=== PATIENT | female | born 1990 | race Caucasian/White ===

== ENCOUNTER 2021-04-19 10:51 | Emergency (ER) | payer BC, OTHER ==
[2021-04-19 11:10] VITALS: TEMP 97.5
[2021-04-19] MEDS ORDERED: KETOROLAC 15 MG/ML 1 ML VIAL IVP STA (11:27)
[2021-04-19] MEDS ORDERED: SODIUM CHLORIDE 0.9% 1,000 ML IV STA (11:27)
[2021-04-19] MEDS ORDERED: PANTOPRAZOLE 40 MG/10 ML VIAL IVP STA (11:27)
[2021-04-19] MEDS ORDERED: ONDANSETRON 4 MG/2 ML VIAL IVP STA (11:27)
[2021-04-19 12:07] LABS: Basophils % (A) 1 %; Eosinophils # (A) 0.1 k/uL (0-0.7); Eosinophils % (A) 2 %; HCT 41.3 % (34.0-46.0); HGB 13.4 gm/dL (11.4-16.0); Lymphocytes # (A) 1.7 k/uL (1.0-4.8); Lymphocytes % (A) 30 %; MCH 29.9 pg (25.0-35.0); MCHC 32.4 g/dL (31.0-37.0); MCV 92.1 fL (80.0-100.0); Mean Platelet Volume 7.7; Monocytes # (A) 0.3 k/uL (0-1.0); Monocytes % (A) 5 %; Neutrophils # (A) 3.3 k/uL (1.3-7.7); Neutrophils % (A) 60 %; Platelet Count 245 k/uL (150-450); RBC 4.49 m/uL (3.80-5.40); RDW 12.8 % (11.5-15.5); WBC 5.5 k/uL (3.8-10.6)
[2021-04-19 12:10] LABS: ALT 19 U/L (4-34); AST 25 U/L (14-36); African American GFR (CKD) >90 (>60 ml/min/1.73 sqM); Alkaline Phosphatase 48 U/L (38-126); Anion Gap 7 mmol/L; Blood Urea Nitrogen 8 mg/dL (7-17); Calcium 9.2 mg/dL (8.4-10.2); Carbon Dioxide 23 mmol/L (22-30); Chloride 110 mmol/L (98-107); Glucose 95 mg/dL (74-99); Lipase 802 U/L (23-300); Non-African American GFR(CKD) >90 (>60 ml/min/1.73 sqM); Potassium 3.9 mmol/L (3.5-5.1); Sodium 140 mmol/L (137-145); Total Bilirubin 0.2 mg/dL (0.2-1.3); Total Protein 6.4 g/dL (6.3-8.2)
[2021-04-19 12:23] LABS: Appearance,Urine Cloudy (Clear); Bacteria,Urine Rare /hpf; Bilirubin,Urine Negative (Negative); Blood,Urine Large (Negative); Color,Urine Yellow; Glucose,Urine (UA) Negative (Negative); Ketones,Urine Negative (Negative); Leukocyte Esterase,Urine Small (Negative); Mucus,Urine Few /hpf; Nitrite,Urine Negative (Negative); Protein,Urine Negative (Negative); RBC,Urine 5 /hpf (0-5); Specific Gravity,Urine 1.017 (1.001-1.035); Squamous Epithelial Cell,Urine 5 /hpf (0-4); Urobilinogen,Urine <2.0 mg/dL (<2.0); WBC,Urine 6 /hpf (0-5)
--- NOTE | 2021-04-19 13:03 | ED ---
Abdominal Pain HPI - General Chief Complaint: Abdominal Pain Stated Complaint: abd pain, hand/foot numbness Time Seen by Provider: 04/19/21 11:13 Source: patient Mode of arrival: wheelchair Limitations: no limitations - History of Present Illness Initial Comments: 30-year-old female presents to the emergency department with a chief complaint of abdominal pain. Patient reports she typically has similar abdominal pains in the right lower quadrant whenever she is in her menstrual period. However, today she woke up with the pain that she describes as "uterine pain". It was sudden onset and right lower quadrant without any radiation. Patient reports she did feel some paresthesias in her arms and legs temporarily which is since resolved. She does report having some nausea vomiting. She denies any associated diarrhea. Denies previous abdominal surgical history. Denies history of ovarian cyst. - Related Data Home Medications Medication Instructions Recorded Confirmed No Known Home Medications 04/19/21 04/19/21 Allergies Allergy/AdvReac Type Severity Reaction Status Date / Time No Known Allergies Allergy Verified 04/19/21 12:48 Review of Systems ROS Statement: Those systems with pertinent positive or pertinent negative responses have been documented in the HPI. ROS Other: All systems not noted in ROS Statement are negative. Past Medical History Past Medical History: No Reported History History of Any Multi-Drug Resistant Organisms: None Reported Past Surgical History: Tonsillectomy, Tubal Ligation Additional Past Surgical History / Comment(s): d & c Past Psychological History: No Psychological Hx Reported Smoking Status: Current every day smoker Past Alcohol Use History: Rare Past Drug Use History: Marijuana General Exam Limitations: no limitations General appearance: alert, in no apparent distress Head exam: Present: atraumatic, normocephalic, normal inspection Eye exam: Present: normal appearance, PERRL, EOMI Pupils: Present: normal accommodation ENT exam: Present: normal exam, normal oropharynx, mucous membranes moist Neck exam: Present: normal inspection, full ROM. Absent: tenderness, lymphadenopathy Respiratory exam: Present: normal lung sounds bilaterally. Absent: respiratory distress, wheezes, rales, rhonchi, stridor Cardiovascular Exam: Present: regular rate, normal rhythm, normal heart sounds. Absent: systolic murmur, diastolic murmur GI/Abdominal exam: Present: soft, tenderness (Positive McBurney point tenderness). Absent: distended, guarding, rebound, rigid Extremities exam: Present: normal inspection, full ROM, normal capillary refill, other (+2 ulnar and radial pulses bilaterally. +2 dorsalis pedis and posterior tibialis bilaterally.). Absent: tenderness, pedal edema, joint swelling, calf tenderness Back exam: Present: normal inspection, full ROM. Absent: tenderness, CVA tenderness (R), CVA tenderness (L), muscle spasm, paraspinal tenderness, vertebral tenderness Neurological exam: Present: alert, oriented X3 Psychiatric exam: Present: normal affect, normal mood Skin exam: Present: warm, dry, intact, normal color Course Vital Signs 04/19/21 04/19/21 11:07 15:34 Temperature 97.5 F L Pulse Rate 67 70 Respiratory 17 18 Rate Blood Pressure 110/65 120/74 O2 Sat by Pulse 100 99 Oximetry Medical Decision Making - Medical Decision Making 30-year-old female presents to the emergency department with a chief complaint of abdominal pain. On physical examination, right lower quadrant tenderness. Patient was given IV fluids, Toradol, Zofran. On reevaluation, she reports a prominent symptoms. CT of abdomen and pelvis shows no appendicitis. Transvaginal ultrasound shows no signs of torsion. She really has an appointment with her OB. This pain has been persistent whenever she is on her menstrual period. No history of ovarian cyst. Return parameters discussed the patient is an attending agreeable. Case discussed with Dr. العراقي - Lab Data Result diagrams: 04/19/21 11:40 04/19/21 11:40 Lab Results 04/19/21 04/19/21 04/19/21 Range/Units 11:40 11:40 11:40 WBC 5.5 (3.8-10.6) k/uL RBC 4.49 (3.80-5.40) m/uL Hgb 13.4 (11.4-16.0) gm/dL Hct 41.3 (34.0-46.0) % MCV 92.1 (80.0-100.0) fL MCH 29.9 (25.0-35.0) pg MCHC 32.4 (31.0-37.0) g/dL RDW 12.8 (11.5-15.5) % Plt Count 245 (150-450) k/uL MPV 7.7 Neutrophils % 60 % Lymphocytes % 30 % Monocytes % 5 % Eosinophils % 2 % Basophils % 1 % Neutrophils # 3.3 (1.3-7.7) k/uL Lymphocytes # 1.7 (1.0-4.8) k/uL Monocytes # 0.3 (0-1.0) k/uL Eosinophils # 0.1 (0-0.7) k/uL Basophils # 0.0 (0-0.2) k/uL Sodium (137-145) mmol/L Potassium (3.5-5.1) mmol/L Chloride (98-107) mmol/L Carbon Dioxide (22-30) mmol/L Anion Gap mmol/L BUN (7-17) mg/dL Creatinine (0.52-1.04) mg/dL Est GFR (CKD-EPI)AfAm (>60 ml/min/1.73 sqM) Est GFR (CKD-EPI)NonAf (>60 ml/min/1.73 sqM) Glucose (74-99) mg/dL Calcium (8.4-10.2) mg/dL Total Bilirubin (0.2-1.3) mg/dL AST (14-36) U/L ALT (4-34) U/L Alkaline Phosphatase (38-126) U/L Total Protein (6.3-8.2) g/dL Albumin (3.5-5.0) g/dL Lipase (23-300) U/L Urine Color Yellow Urine Appearance Cloudy H (Clear) Urine pH 6.0 (5.0-8.0) Ur Specific [place] 1.017 (1.001-1.035) Urine Protein Negative (Negative) Urine Glucose (UA) Negative (Negative) Urine Ketones Negative (Negative) Urine Blood Large H (Negative) Urine Nitrite Negative (Negative) Urine Bilirubin Negative (Negative) Urine Urobilinogen <2.0 (<2.0) mg/dL Ur Leukocyte Esterase Small H (Negative) Urine RBC 5 (0-5) /hpf Urine WBC 6 H (0-5) /hpf Ur Squamous Epith Cells 5 H (0-4) /hpf Urine Bacteria Rare H (None) /hpf Urine Mucus Few H (None) /hpf Urine HCG, Qual Not Detected (Not Detectd) 04/19/21 Range/Units 11:40 WBC (3.8-10.6) k/uL RBC (3.80-5.40) m/uL Hgb (11.4-16.0) gm/dL Hct (34.0-46.0) % MCV (80.0-100.0) fL MCH (25.0-35.0) pg MCHC (31.0-37.0) g/dL RDW (11.5-15.5) % Plt Count (150-450) k/uL MPV Neutrophils % % Lymphocytes % % Monocytes % % Eosinophils % % Basophils % % Neutrophils # (1.3-7.7) k/uL Lymphocytes # (1.0-4.8) k/uL Monocytes # (0-1.0) k/uL Eosinophils # (0-0.7) k/uL Basophils # (0-0.2) k/uL Sodium 140 (137-145) mmol/L Potassium 3.9 (3.5-5.1) mmol/L Chloride 110 H (98-107) mmol/L Carbon Dioxide 23 (22-30) mmol/L Anion Gap 7 mmol/L BUN 8 (7-17) mg/dL Creatinine 0.56 (0.52-1.04) mg/dL Est GFR (CKD-EPI)AfAm >90 (>60 ml/min/1.73 sqM) Est GFR (CKD-EPI)NonAf >90 (>60 ml/min/1.73 sqM) Glucose 95 (74-99) mg/dL Calcium 9.2 (8.4-10.2) mg/dL Total Bilirubin 0.2 (0.2-1.3) mg/dL AST 25 (14-36) U/L ALT 19 (4-34) U/L Alkaline Phosphatase 48 (38-126) U/L Total Protein 6.4 (6.3-8.2) g/dL Albumin 4.0 (3.5-5.0) g/dL Lipase 802 H (23-300) U/L Urine Color Urine Appearance (Clear) Urine pH (5.0-8.0) Ur Specific [place] (1.001-1.035) Urine Protein (Negative) Urine Glucose (UA) (Negative) Urine Ketones (Negative) Urine Blood (Negative) Urine Nitrite (Negative) Urine Bilirubin (Negative) Urine Urobilinogen (<2.0) mg/dL Ur Leukocyte Esterase (Negative) Urine RBC (0-5) /hpf Urine WBC (0-5) /hpf Ur Squamous Epith Cells (0-4) /hpf Urine Bacteria (None) /hpf Urine Mucus (None) /hpf Urine HCG, Qual (Not Detectd) Disposition Clinical Impression: Abdominal pain Disposition: HOME SELF-CARE Condition: Stable Instructions (If sedation given, give patient instructions): Abdominal Pain (ED) Additional Instructions: Please return to the Emergency Department if symptoms worsen or any other concerns. Is patient prescribed a controlled substance at d/c from ED?: No Referrals: None,Stated [Primary Care Provider] - 1-2 days Time of Disposition: 14:57
--- NOTE | 2021-04-19 14:08 | US ---
EXAMINATION TYPE: US transvaginal DATE OF EXAM: 04/19/2021 COMPARISON: NONE CLINICAL HISTORY: r/o torsion. pain TECHNIQUE: Transvaginal (TV). EXAM MEASUREMENTS: Uterus: 7.5 x 3.9 x 6.1 cm Endometrial Stripe: .3 cm Right Ovary: 3.5 x 2.1 x 1.8 cm Left Ovary: 4.0 x 1.7 x 1.6 cm 1. Uterus: Anteverted wnl 2. Endometrium: 1 mm of fluid seen 3. Right Ovary: wnl 4. Left Ovary: wnl Spectral, color and waveform doppler imaging shows good arterial and venous flow within the ovaries ; there is no evidence for ovarian torsion. 5. Bilateral Adnexa: wnl 6. Posterior cul-de-sac: wnl IMPRESSION: Small amount of endometrial fluid is nonspecific.
--- NOTE | 2021-04-19 14:37 | CT ---
EXAMINATION TYPE: CT abdomen pelvis w con DATE OF EXAM: 04/19/2021 COMPARISON: None INDICATION: Abdominal pain, hand and foot numbness DLP: 659.6 mGycm, Automated exposure control for dose reduction was used. CONTRAST: 100 mL of Isovue 300. Study performed without Oral Contrast TECHNIQUE: Axial images were obtained from above the diaphragm to the pubic rami in the axial plane a t 5 mm thick sections. Reconstructed images are reviewed on the computer in the coronal plane. FINDINGS: Limited CT sections are obtained the lung bases. The lung bases are clear. CT ABDOMEN: Liver: Normal Spleen: Normal Pancreas: Normal Adrenal glands: The adrenal glands are normal. Gallbladder: Normal Kidneys: No masses are evident. No hydronephrosis is present. Tiny cortical renal cysts on the righ t on delayed images. Delayed images were obtained through the kidneys, which remain unremarkable. Th ere is a 0.3 cm nonobstructing renal stone mid upper left kidney Aorta: Normal Inferior vena cava: Normal. CT PELVIS: Loops of bowel within the abdomen and pelvis are normal. Fecal debris is within the colon. Appendix: Normal as visualized. Urinary bladder: Normal. Genitourinary structures: Uterus may have some hypodensity in the upper right fundus of the uterus ma y be a small cyst. Uterus otherwise appears unremarkable. Adnexa appear normal. Osseous structures: Normal IMPRESSIONS: 1. Hypodense collection in the fundus of the uterus could be a small cyst. 2. Nonobstructing renal stone left kidney.
[2021-04-19 15:40] VITALS: BP 120/74; PULSE 70; RESP 18
== END 2021-04-19 15:39 | disposition home or self-care (01) ==
LOC: EC 10:51
DX: R10.31 Right lower quadrant pain (principal); R20.0 Anesthesia of skin; R20.2 Paresthesia of skin; R11.2 Nausea with vomiting, unspecified; F17.200 Nicotine dependence, unspecified, uncomplicated
CPT/HCPCS: 36415; 80053; 83690; 85025; 81001; 81025; 93975; 76830; 74177; 99284; 96374; 96375; 96361; J2405; J1885; C9113; Q9967

== ENCOUNTER 2024-02-14 11:58 | Day surgery (SDC) | payer OTHER ==
[2024-02-08 09:53] VITALS: BMI 26.4
[~2024-02-14 11:58] MED LIST: LACTATED RINGERS 1,000 ML IV SCH
[2024-02-14] MEDS: LACTATED RINGERS 1,000 ML IV ONE (12:57)
[2024-02-14] MEDS ORDERED: PROPOFOL 10 MG/ML 20 ML VIAL IV ONE (13:27)
[2024-02-14 13:36] VITALS: TEMP 97.5
--- NOTE | 2024-02-14 13:44 | P.PCN ---
Date of Procedure: 02/14/24 Procedure(s) Performed: BRIEF HISTORY: Patient is a 33-year-old pleasant white female scheduled for an elective colonoscopy as a part of evaluation of intermittent rectal bleeding for the last 2 months duration. PROCEDURE PERFORMED: Colonoscopy with snare polypectomy. PREOPERATIVE DIAGNOSIS: Intermittent rectal bleeding. IV sedation per Anesthesia. PROCEDURE: After informed consent was obtained, the patient, was brought into the endoscopy unit. IV sedation was administered by Anesthesia under continuous monitoring. Digital rectal examination was normal. Initially the Olympus CF-160 flexible video colonoscope was then inserted in the rectum, gradually advanced into the cecum without any difficulty. Careful examination was performed as the scope was gradually being withdrawn. Ileocecal valve and the appendiceal orifice were visualized and appeared normal. Prep was excellent. Mucosa of the cecum, ascending colon, transverse colon, descending colon, sigmoid colon, and rectum appeared normal. Proximal rectum there was a 5 mm polyp that was removed by cold snare polypectomy. Scattered diffuse diverticulosis seen. Retroflexion was performed in the rectum and grade 2 internal hemorrhoids were seen. The patient tolerated the procedure well. IMPRESSION: 5 mm proximal rectal polyp status post polypectomy Scattered diffuse diverticulosis Grade 2 internal hemorrhoids RECOMMENDATIONS: Findings of this examination were discussed with the patient as well as her family. Follow with the biopsy results. If the biopsy reveals adenoma, recommend repeat colonoscopy in 5 years. She was advised to be on high-fiber diet and take fiber supplements on a regular basis.
[2024-02-14 14:30] VITALS: BP 122/69; PULSE 51; RESP 16
== END 2024-02-14 14:53 | disposition home or self-care (01) ==
LOC: ORWHC2ENDO 11:58
PROVIDERS: ATTEND Internal Medicine Gastroenterology
DX: D12.8 Benign neoplasm of rectum (principal); K62.5 Hemorrhage of anus and rectum; K57.30 Diverticulosis of large intestine without perforation or abscess without bleeding; K64.1 Second degree hemorrhoids
CPT/HCPCS: 81025; 88305; 45385; J2704